=== PATIENT | female | born 1995 | race Caucasian/White ===

== ENCOUNTER 2017-08-04 22:17 | Emergency (ER) | payer OTHER ==
[2017-08-04 22:22] VITALS: BP 144/81; TEMP 98; BMI 22.1
--- NOTE | 2017-08-04 22:41 | PDOC ---
History of Present Illness - General History Source: Patient Exam Limitations: No Limitations - History of Present Illness Initial Comments: 08/04/17 22:50 The patient is a 22 year old female who is currently 12 weeks , presenting with her family, A0 with no significant past medical history, who presents to the emergency department with vaginal bleeding onset today. She describes her vaginal bleeding as ranging from mild to moderate. She reports that she is experiencing some mild abdominal discomfort, which she describes as a pressure. She denies any radiation or modifying factors. She reports that her last ultrasound was 07/13/17 and everything was good at that time. She notes that she recently had sex and the bleeding started afterwards. The patient denies chest pain, shortness of breath, headache and dizziness. Denies fever, chills, nausea, vomit, diarrhea and constipation. Denies dysuria, frequency and urgency. Allergies: None Past surgical history: None reported Social history: No alcohol, tobacco or drug use reported <Robb Rhodes - Last Filed: 08/04/17 22:50> <Yamile Merino - Last Filed: 08/05/17 01:49> - General Chief Complaint: Vaginal Bleeding Stated Complaint: VAGINAL BLEEDING (12WKS ) Time Seen by Provider: 08/04/17 22:41 Past History <Robb Rhodes - Last Filed: 08/04/17 22:50> - Past Medical History COPD: No Thyroid Disease: Yes (ANXIETY) - Suicide/Smoking/Psychosocial Hx Smoking History: Never smoked Have you smoked in the past 12 months: No Information on smoking cessation initiated: No Hx Alcohol Use: No Drug/Substance Use Hx: No Substance Use Type: None <Yamile Merino - Last Filed: 08/05/17 01:49> - Past Medical History Allergies/Adverse Reactions: Allergies Allergy/AdvReac Type Severity Reaction Status Date / Time No Known Allergies Allergy Verified 10/19/15 08:47 Home Medications: Ambulatory Orders NK [No Known Home Medication] 10/19/15 Review of Systems - Review of Systems Able to Perform ROS?: Yes Comments:: 08/04/17 22:51 GENERAL/CONSTITUTIONAL: No fever or chills. No weakness. HEAD, EYES, EARS, NOSE AND THROAT: No change in vision. No ear pain or discharge. No sore throat.- CARDIOVASCULAR: No chest pain or shortness of breath RESPIRATORY: No cough, wheezing, or hemoptysis. GASTROINTESTINAL: (+) Abdominal pressure. No nausea, vomiting, diarrhea or constipation. GENITOURINARY: (+) Vaginal bleeding. No dysuria, frequency, or change in urination. MUSCULOSKELETAL: No joint or muscle swelling or pain. No neck or back pain. SKIN: No rash NEUROLOGIC: No headache, vertigo, loss of consciousness, or change in strength/ sensation. ENDOCRINE: No increased thirst. No abnormal weight change HEMATOLOGIC/LYMPHATIC: No anemia, easy bleeding, or history of blood clots. ALLERGIC/IMMUNOLOGIC: No hives or skin allergy. <Robb Rhodes - Last Filed: 08/04/17 22:50> *Physical Exam - Vital Signs Last Vital Signs Temp Pulse Resp BP Pulse Ox 98 F 135 H 22 144/81 97 08/04/17 22:18 08/04/17 22:18 08/04/17 22:18 08/04/17 22:18 08/04/17 22:18 - Physical Exam Comments: 08/04/17 22:51 GENERAL: Awake, alert, and fully oriented, in no acute distress HEAD: No signs of trauma, normocephalic, atraumatic EYES: PERRLA, EOMI, sclera anicteric, conjunctiva clear ENT: Auricles normal inspection, hearing grossly normal, nares patent, oropharynx clear without exudates. Moist mucosa NECK: Normal ROM, supple, no lymphadenopathy, JVD, or masses LUNGS: No distress, speaks full sentences, clear to auscultation bilaterally HEART: Regular rate and rhythm, normal S1 and S2, no murmurs, rubs or gallops, peripheral pulses normal and equal bilaterally. ABDOMEN: Soft, nontender, normoactive bowel sounds. No guarding, no rebound. No masses EXTREMITIES : Normal inspection, Normal range of motion, no edema. No clubbing or cyanosis. NEUROLOGICAL: Cranial nerves II through XII grossly intact. Normal speech, normal gait, no focal sensorimotor deficits SKIN: Warm, Dry, normal turgor, no rashes or lesions noted. <Robb Rhodes - Last Filed: 08/04/17 22:50> - Vital Signs Last Vital Signs Temp Pulse Resp BP Pulse Ox 98 F 135 H 22 144/81 97 08/04/17 22:18 08/04/17 22:18 08/04/17 22:18 08/04/17 22:18 08/04/17 22:18 <Yamile Merino - Last Filed: 08/05/17 01:49> ED Treatment Course - LABORATORY CBC & Chemistry Diagram: 08/04/17 22:55 08/04/17 22:55 <Yamile Merino - Last Filed: 08/05/17 01:49> Medical Decision Making - Medical Decision Making 08/05/17 00:45 Pt presents to the ED complaining of vaginal spotting that has now become vaginal bleeding. Complains of nausea without vomiting. On pelvic exam, patient has small amount of blood in the vaginal vault, os is closed, no adnexal tenderness. On my bedside US, I see twin IUP with movement. Will check labs, offical US to confirm IUP and rule out ectopic. <Yamile Merino - Last Filed: 08/05/17 01:49> *DC/Admit/Observation/Transfer - Attestations Scribe Attestion: 08/04/17 22:51 Documentation prepared by Robb Rhodes, acting as medical staffing coordinator for Yamile Merino MD <Robb Rhodes - Last Filed: 08/04/17 22:50> - Discharge Dispostion Admit: No <Yamile Merino - Last Filed: 08/05/17 01:49> Diagnosis at time of Disposition: Threatened - Discharge Dispostion Disposition: HOME Condition at time of disposition: Good - Patient Instructions Printed Discharge Instructions: DI for Threatened Additional Instructions: return to the ED for severe abdominal pain or heavy vaginal bleeding, passing large clots, soaking a pad front to back in less than an hour. Make sure that you call your OB for follow up on Sunday.
[2017-08-04 23:12] LABS: BASOPHIL 0.5 % (0-2.0); EOSINOPHIL 0.7 % (0-4.5); MCH 29.2 pg (25.7-33.7); MCHC 33.7 g/dl (32.0-36.0); MEAN CELL VOLUME 86.8 fl (80-96); MEAN PLT VOLUME 8.2 fl (7.5-11.1); NEUTROPHILS 75.2 % (42.8-82.8); PLATELET COUNT 275 K/MM3 (134-434); RDW 13.3 % (11.6-15.6); WHITE BLOOD COUNT 13.2 K/mm3 (4.0-10.0)
[2017-08-04 23:39] LABS: ALBUMIN 3.8 g/dl (3.4-5.0); ANION GAP 12 (8-16); CALCIUM 9.3 mg/dL (8.5-10.1); CO2 22 mmol/L (21-32); CREATININE 0.7 mg/dL (0.55-1.02); GLUCOSE,RANDOM 102 mg/dL (74-106); SGOT/AST 14 U/L (15-37); SGPT/ALT 20 U/L (12-78)
[2017-08-04 23:55] LABS: ALK PHOS 70 U/L (45-117); BILIRUBIN,TOTAL 0.4 mg/dL (0.2-1.0); TOT PROT 7.6 g/dl (6.4-8.2)
[2017-08-05 01:44] VITALS: PULSE 105
== END 2017-08-05 02:01 | disposition home or self-care (01) ==
LOC: JER 22:17
DX: O26.891 Other specified pregnancy related conditions, first trimester (principal); O20.0 Threatened abortion; Z3A.12 12 weeks gestation of pregnancy
CPT/HCPCS: 36415; 76801-TC; 80053; 84702; 85025; 86850; 86900; 86901; 99282-25